=== PATIENT | male | born 1970 | race Caucasian/White ===

== ENCOUNTER 2017-04-27 14:46 | Inpatient (IN) | payer BC, SELFPAY ==
[2017-04-27] VITALS (7 sets, daily range): BP systolic 115–154; BP diastolic 54–82; PULSE 70–107; RESP 16–20; TEMP 36.3–37.2; O2SAT 94–99; BMI 25.2; BMI 25.1; BMI 23.1
--- NOTE | 2017-04-27 14:59 | XR_ITS ---
XR chest 2V HISTORY: Chest pain ITS.REASON: pain in ribs ORDERING PHYSICIAN: Tena Almaraz MD PATIENT AGE: 46 years COMPARISON: 01/31/2017 FINDINGS: The cardiomediastinal silhouette and pulmonary vascularity are within normal limits. Previously noted infiltrate in the left lung base has shown improvement. There is some residual density in the left lower lobe posteriorly which may be due to residual atelectasis or infiltrate.. In addition, there is patchy density right lung base medially consistent with atelectasis or infiltrate. IMPRESSION: 1. Improved lingular pneumonia with some residual atelectasis or infiltrate in the left lung base 2. There is increased density in the right lung base medially and posteriorly consistent with pneumonia
--- NOTE | 2017-04-27 15:19 | HMH.EDGENADL ---
ED Disposition Clinical Impression: RLL pneumonia, IV drug user Disposition: Still a Patient Condition on Discharge: Fair Referrals: Brunilda Romano APRN [Primary Care Provider] - - Critical Care Critical Care Time: No Attestation: On , the high probability of a clinically significant, sudden or life threatening deterioration of the following system(s) required my full and direct attention, intervention and personal management. The time I documented below is in addition to time spent performing reported procedures but includes the following listed in this critical care notation. Medical Decision Making Vital Signs: 04/27/17 14:54 Temperature 99.0 F Temperature Source Oral Pulse Rate [Right Brachial] 107 H Respiratory Rate 20 Blood Pressure [Right Arm] 154/54 Blood Pressure Mean [Right Arm] 87 Blood Pressure Source [Right Arm] Automatic Cuff Blood Pressure Position [Right Arm] Sitting 02 Sat by Pulse Oximetry 94 L Oxygen Delivery Method Room Air - Lab Data Lab Results 04/27/17 15:50: WBC 17.3 H, RBC 3.99 L, Hgb 10.2 L, Hct 32.4 L, MCV 81.3, MCH 25.5 L, MCHC 31.3 L, RDW 14.8, Plt Count 316, MPV 7.8, Neut % (Auto) 89.7 H, Lymph % (Auto) 5.4 L, [place] % (Auto) 4.6, Eos % (Auto) 0.2, Baso % (Auto) 0.1, Neut # (Auto) 15.5 H, Lymph # (Auto) 0.9, [place] # (Auto) 0.8, Eos # (Auto) 0.0, Baso # (Auto) 0.0, Total Counted 100, Neutrophils % (Manual) 86 H, Band Neutrophils % 5.0, Lymphocytes % (Manual) 5 L, Monocytes % (Manual) 4, Platelet Estimate Normal, RBC Morphology Normal 04/27/17 15:50: Sodium 131 L, Potassium 3.6, Chloride 94 L, Carbon Dioxide 28, Anion Gap 12.6, BUN 9, Creatinine 1.11, Estimated Creat Clear 91, Estimated GFR 71, Est GFR ( Amer) 86, Glucose 173 H, Calcium 8.6, Total Bilirubin 0.8, AST 10 L, ALT 12, Alkaline Phosphatase 78, Troponin I < 0.02, Total Protein 8.1, Albumin 3.2 L, Globulin 4.9 H, Albumin/Globulin Ratio 0.7 L, Lipase 78 04/27/17 15:50: Lactic Acid 0.5 Result diagrams: 04/27/17 15:50 04/27/17 15:50 Orders (Tests/Meds): ED MEDICATIONS Generic Name Dose Route Start Last Admin Trade Name Freq PRN Reason Stop Dose Admin Ceftriaxone Sodium 1 gm/ 50 mls @ 100 mls/hr 04/27/17 15:30 04/27/17 16:13 Sodium Chloride IV 05/11/17 15:29 100 mls/hr Q24H GRISELDA Administration Discontinued Medications Generic Name Dose Route Start Last Admin Trade Name Freq PRN Reason Stop Dose Admin Acetaminophen 1,000 mg 04/27/17 15:18 04/27/17 16:13 Tylenol 500mg Tablet PO 04/27/17 15:19 1,000 mg ONCE ONE Administration ORDERS Category Date Time Status Chest XR 2 view (NOT portable) [XR chest 2V] Stat Exams 04/27/17 14:59 Taken Drug Screen,Urine Stat Lab 04/27/17 15:17 Ordered Urinalysis and Microscopic Stat Lab 04/27/17 15:17 Ordered Blood Culture Stat Micro 04/27/17 15:50 Received - Radiology Data #1 Image(s): Chest Image Reviewed: Yes I reviewed the patient's radiology image Preliminary Findings: Abnormal Right lower lobe infiltrate. - ECG Data Tracing #1 Sinus tachycardia 1 12/min left atrial enlargement baseline artifact nonspecific ST and T-wave change. ECG initial impression date: 04/27/17 ECG initial impression time: 15:22 Normal Sinus Rhythm: No - Joaquín Inquiry Pt receiving controlled substance: No Joaquín was queried for this patient: No Medical Decision Making Narrative: Patient ruled out for [place] by negative troponin, he had right lower lobe infiltrates and an elevated white count. She is Brunilda Romano and Joe .called Dr. Abdi to admit General Adult HPI - General Chief complaint: PAIN Stated complaint: pain in ribs Mode of Arrival: Ambulatory Limitations: No Limitations Description of Symptoms (Recalled from ER Triage Doc. by RN): Pt reports pain in R posterior rib area, states pain happens with inspiration. Pt reports had this same feeling last time he had pneumonia - History of Present Illness HPI narrat
--- NOTE | 2017-04-27 15:22 | ED_ITS ---
ED Disposition Clinical Impression: RLL pneumonia, IV drug user Disposition: Still a Patient Condition on Discharge: Fair Referrals: Brunilda Romano APRN [Primary Care Provider] - - Critical Care Critical Care Time: No Attestation: On , the high probability of a clinically significant, sudden or life threatening deterioration of the following system(s) required my full and direct attention, intervention and personal management. The time I documented below is in addition to time spent performing reported procedures but includes the following listed in this critical care notation. Medical Decision Making Vital Signs: 04/27/17 14:54 Temperature 99.0 F Temperature Source Oral Pulse Rate [Right Brachial] 107 H Respiratory Rate 20 Blood Pressure [Right Arm] 154/54 Blood Pressure Mean [Right Arm] 87 Blood Pressure Source [Right Arm] Automatic Cuff Blood Pressure Position [Right Arm] Sitting 02 Sat by Pulse Oximetry 94 L Oxygen Delivery Method Room Air - Lab Data Lab Results 04/27/17 15:50: WBC 17.3 H, RBC 3.99 L, Hgb 10.2 L, Hct 32.4 L, MCV 81.3, MCH 25.5 L, MCHC 31.3 L, RDW 14.8, Plt Count 316, MPV 7.8, Neut % (Auto) 89.7 H, Lymph % (Auto) 5.4 L, [place] % (Auto) 4.6, Eos % (Auto) 0.2, Baso % (Auto) 0.1, Neut # (Auto) 15.5 H, Lymph # (Auto) 0.9, [place] # (Auto) 0.8, Eos # (Auto) 0.0, Baso # (Auto) 0.0, Total Counted 100, Neutrophils % (Manual) 86 H, Band Neutrophils % 5.0, Lymphocytes % (Manual) 5 L, Monocytes % (Manual) 4, Platelet Estimate Normal, RBC Morphology Normal 04/27/17 15:50: Sodium 131 L, Potassium 3.6, Chloride 94 L, Carbon Dioxide 28, Anion Gap 12.6, BUN 9, Creatinine 1.11, Estimated Creat Clear 91, Estimated GFR 71, Est GFR ( Amer) 86, Glucose 173 H, Calcium 8.6, Total Bilirubin 0.8, AST 10 L, ALT 12, Alkaline Phosphatase 78, Troponin I < 0.02, Total Protein 8.1 , Albumin 3.2 L, Globulin 4.9 H, Albumin/Globulin Ratio 0.7 L, Lipase 78 04/27/17 15:50: Lactic Acid 0.5 Result diagrams: 04/27/17 15:50 04/27/17 15:50 Orders (Tests/Meds): ED MEDICATIONS Generic Name Dose Route Start Last Admin Trade Name Freq PRN Reason Stop Dose Admin Ceftriaxone Sodium 1 gm/ 50 mls @ 100 mls/hr 04/27/17 15:30 04/27/17 16:13 Sodium Chloride IV 05/11/17 15:29 100 mls/hr Q24H GRISELDA Administration Discontinued Medications Generic Name Dose Route Start Last Admin Trade Name Freq PRN Reason Stop Dose Admin Acetaminophen 1,000 mg 04/27/17 15:18 04/27/17 16:13 Tylenol 500mg Tablet PO 04/27/17 15:19 1,000 mg ONCE ONE Administration ORDERS Category Date Time Status Chest XR 2 view (NOT portable) [XR chest 2V] Stat Exams 04/27/17 14:59 Taken Drug Screen,Urine Stat Lab 04/27/17 15:17 Ordered Urinalysis and Microscopic Stat Lab 04/27/17 15:17 Ordered Blood Culture Stat Micro 04/27/17 15:50 Received - Radiology Data #1 Image(s): Chest Image Reviewed: Yes I reviewed the patient's radiology image Preliminary Findings: Abnormal Right lower lobe infiltrate. - ECG Data Tracing #1 Sinus tachycardia 1 12/min left atrial enlargement baseline artifact nonspecific ST and T-wave change. ECG initial impression date: 04/27/17 ECG initial impression time: 15:22 Normal Sinus Rhythm: No - Joaquín Inquiry Pt receiving controlle
[2017-04-27 16:10] LABS: Basophils % 0.1 % (0.1-2.0); Eosinophils % 0.2 % (0.1-12.0); Hematocrit 32.4 % (42.0-52.0); Hemoglobin 10.2 g/dL (14.1-18.0); Lymphocytes # 0.9 K/mm3 (0.7-4.5); Lymphocytes % 5.4 K/mm3 (10-50); Mean Corpuscular HGB Conc 31.3 g/dL (31.8-35.4); Mean Corpuscular Hemoglobin 25.5 pg (27.0-31.2); Mean Corpuscular Volume 81.3 fl (80-94); Mean Platelet Volume 7.8 fl (7.4-10.4); Monocytes # 0.8 K/mm3 (0.1-1.0); Monocytes % 4.6 % (1.7-9.3); Neutrophils # 15.5 K/mm3 (1.8-7.8); Neutrophils % 89.7 % (37.0-80.0); Platelet Count 316 K/mm3 (142-424); Red Blood Count 3.99 M/mm3 (4.60-6.20); Red Cell Distribution Width 14.8 % (11.5-17.5); White Blood Count 17.3 K/mm3 (4.8-10.8)
[2017-04-27 16:14] LABS: MANUAL DIFFERENTIAL MANUAL DIFFERENTIAL (MANUAL DIFF)
[2017-04-27 16:26] LABS: Lactic Acid 0.5 mmol/L (0.4-2.0)
[2017-04-27 16:28] LABS: Lymphocytes % 5 % (10-50); Monocytes % 4 % (2-9); Neutrophils % 86 % (42-76); Platelet Estimate Normal; RBC Morphology Normal; Total Cells Counted 100
[2017-04-27 16:30] LABS: Alanine Aminotransferase 12 U/L (12-78); Albumin Level 3.2 gm/dL (3.4-5.0); Albumin/Globulin Ratio 0.7 (1.1-1.8); Alkaline Phosphatase 78 U/L (46-116); Anion Gap 12.6 mEq/L (5-15); Aspartate Amino Transferase 10 U/L (15-37); Bilirubin,Total 0.8 mg/dL (0.2-1.0); Blood Urea Nitrogen 9 mg/dL (7-18); Calcium 8.6 mg/dL (8.5-10.1); Carbon Dioxide 28 mmol/L (21.0-32.0); Chloride 94 mmol/L (98-107); Creatinine Clearance Estimated 91 mL/min (0-300); Creatinine,Serum 1.11 mg/dL (0.70-1.30); Estimated Glomerular Filt Rate 71 ml/min (>60); GFR (African American) 86 ML/MIN (>60); Globulin 4.9 gm/dl (1.3-3.2); Lipase 78 u/L (73-393); Potassium 3.6 mmoL/L (3.5-5.1); Sodium 131 mmol/L (136-145); Total Protein,Serum 8.1 gm/dL (6.4-8.2); Troponin I < 0.02 ng/ml (0.00-0.06)
[2017-04-27 16:36] LABS: Glucose 173 mg/dL (74-106)
[2017-04-27 18:25] LABS: Troponin I < 0.02 ng/ml (0.00-0.06)
--- NOTE | 2017-04-27 18:44 | PC.NURSE ---
Report called to ABBY Zelaya in medsurg department at this time.
[2017-04-28] VITALS (24 sets, daily range): BP systolic 94–126; BP diastolic 51–81; PULSE 64–104; RESP 16–18; TEMP 34.8–36.5; O2SAT 95–100
--- NOTE | 2017-04-28 | PC.NURSE ---
PATIENT'S ORAL TEMPERATURE WILL NOT REGISTER AT THIS TIME. RECTAL TEMPERATURE OF 95.2 NOTED. ROMEL RODAS PUT ON PATIENT AT THIS TIME. OTHER VSS. DR. ERICKSON NOTIFIED WITH NO NEW ORDERS AT THIS TIME. WILL CONTINUE TO MONITOR PER HYPOTHERMIA PROTOCOL.
--- NOTE | 2017-04-28 00:06 | PC.NURSE ---
NURSE NOTIFIED OF PTS LOW TEMP. BRIT PAWS APPLIED PER PROTOCOL
[2017-04-28 00:10] LABS: Troponin I < 0.02 ng/ml (0.00-0.06)
--- NOTE | 2017-04-28 00:19 | PC.NURSE ---
VS REPORTED TO RN. & VS EDWIN PER PROTOCOL
--- NOTE | 2017-04-28 00:38 | PC.NURSE ---
NURSE NOTIFIED . BRIT HEMANT & PATRICK GERBERS IN PLACE PER PROTOCOL. VS TAKEN PER PROTOCOL
--- NOTE | 2017-04-28 00:56 | PC.NURSE ---
BRIT PAWS IN PLACE WITH WARM BALNKET. NURSE NOTIFIED OF PTS TEMP. VS BEING TAKEN PER PROTOCOL
--- NOTE | 2017-04-28 01:32 | PC.NURSE ---
nurse notiified of pts temp. vs taken per protocol. fortunato paws & warm blankets in place & heat adjusted in room per protocol
--- NOTE | 2017-04-28 01:54 | PC.NURSE ---
BRIT PAWS & WARM BLANKETS IN PLACE. VS TAKEN PER PROTOCOL. NURSE NOTIFIED
--- NOTE | 2017-04-28 02:23 | PC.NURSE ---
NURSE NOTIFIED OF PTS TEMP. VS TAKEN PER [facility] PROTOCOL. BRIT PWA & WARM BLANKETS IN PLACE
--- NOTE | 2017-04-28 02:59 | PC.NURSE ---
BRIT PAW IN PLACE & VS TAKEN PER PROTOCOL. NURSE NOTIFIED OF PTS TEMP
--- NOTE | 2017-04-28 03:53 | PC.NURSE ---
fortunato paws in place. vs taken per protocl. nurse notified
--- NOTE | 2017-04-28 03:54 | PC.NURSE ---
BRIT PAW & WARM BLANKETSW IN PLACE. VS TAKEN. RN AWARE
--- NOTE | 2017-04-28 04:17 | PC.NURSE ---
reported vs to lalit. fortunato paw in place
--- NOTE | 2017-04-28 04:49 | PC.NURSE ---
VS BEING TAKEN PER PROTOL & REPORTED TO RN. BRIT PAWS & WARM BLANKETS IN PLACE
--- NOTE | 2017-04-28 05:02 | PC.NURSE ---
PATIENT HAS NOT SLEPT WELL THIS SHIFT. PATIENT'S TEMP AT 0000 WAS 95.2 RECTALLY. MD WAS NOTIFIED AND PATIENT PLACED ON BEAR HUGGER. WARM BLANKETS WERE APPLIED AND WARM FLUIDS STARTED. PATIENT IS CURRENTLY STILL ON THE BEAR HUGGER WITH RECTAL TEMPS RANGING FROM 94.7-95.1. PATIENT IS SOMEWHAT NON-COMPLIANT WITH KEEPING THE BEAR HUGGER AND BLANKETS ON, STATING THAT HE IS TOO HOT . PATIENT ENCOURAGED AND EDUCATED ON THE IMPORTANCE OF KEEPING THE BEAR HUGGER IN PLACE. HE HAS C/O PAIN TO LOWER BACK X1 AND RECEIVED PRN TYLENOL. NO OTHER PROBLEMS NOTED AT THIS TIME. PATIENT IS CURRENTLY IN BED WATCHING TV. REMAINING VSS. WILL CONTINUE TO MONITOR. SAFETY MEASURES IN PLACE, CALL LIGHT IN REACH.
--- NOTE | 2017-04-28 06:07 | PC.NURSE ---
PT HAS NOT VOIDED THIS SHIFT. NURSE NOTIFIED
--- NOTE | 2017-04-28 06:09 | PC.NURSE ---
NURSE NOTIFIED OF VS. PT IS ON BRIT PAW & HAS WARM BLANKETS
--- NOTE | 2017-04-28 07:25 | P.CONPHA_ITS ---
[facility] Pharmacy VTE Monitoring - Patient Demographics Admission date: 04/27/17 Report Date: 04/28/17 Time: 07:25 Allergies/Adverse Reactions: Patient Allergies No Known Allergies Allergy (Unverified 02/11/17 14:21) Height: 1.75 m Weight: 70.931 kg Patient Problems: Current Active Problems RLL pneumonia (Acute) IV drug user (Acute) - VTE Risk Labs: VTE Related Lab Results Hgb 10.2 g/dL (14.1-18.0) L 04/27/17 15:50 Hct 32.4 % (42.0-52.0) L 04/27/17 15:50 Plt Count 316 K/mm3 (142-424) 04/27/17 15:50 BUN 9 mg/dL (7-18) 04/27/17 15:50 Creatinine 1.11 mg/dL (0.70-1.30) 04/27/17 15:50 Estimated Creat Clear 91 mL/min (0-300) 04/27/17 15:50 VTE Score: 1 VTE Risk Level: Very Low Risk - Prophylaxis VTE Prophylaxis Ordered?: Yes Types of VTE Prophylaxis: TEDS Knee High Location of Applied Device: Bilateral Lower Extremeties - VTE Diagnosis Confirmed Treatment or plan recommended: Continue Current Treatment
--- NOTE | 2017-04-28 07:27 | PC.NURSE ---
REPORT GIVEN TO Zac MAZARIEGOS W/C
[2017-04-28 07:28] LABS: Basophils % 0.1 % (0.1-2.0); Eosinophils # 0.2 K/mm3 (0.0-0.4); Lymphocytes # 0.8 K/mm3 (0.7-4.5); Neutrophils # 11.4 K/mm3 (1.8-7.8); Red Cell Distribution Width 14.9 % (11.5-17.5)
--- NOTE | 2017-04-28 07:30 | PC.NURSE ---
nurse notified of pts temp. fortunato paw in place per protocol
[2017-04-28 07:32] LABS: Anion Gap 13.1 mEq/L (5-15); Blood Urea Nitrogen 11 mg/dL (7-18); Carbon Dioxide 27 mmol/L (21.0-32.0); Chloride 98 mmol/L (98-107); Creatinine Clearance Estimated 96 mL/min (0-300); Creatinine,Serum 0.96 mg/dL (0.70-1.30); Estimated Glomerular Filt Rate 84 ml/min (>60); GFR (African American) 102 ML/MIN (>60); Magnesium 2.2 mg/dL (1.4-2.2); Potassium 4.1 mmoL/L (3.5-5.1); Sodium 134 mmol/L (136-145)
[2017-04-28 07:34] LABS: Eosinophils % 1.2 % (0.1-12.0); Hematocrit 38.7 % (42.0-52.0); Lymphocytes % 6.1 K/mm3 (10-50); Mean Corpuscular HGB Conc 31.4 g/dL (31.8-35.4); Mean Corpuscular Hemoglobin 25.7 pg (27.0-31.2); Mean Corpuscular Volume 81.9 fl (80-94); Mean Platelet Volume 7.8 fl (7.4-10.4); Monocytes # 0.4 K/mm3 (0.1-1.0); Monocytes % 3.4 % (1.7-9.3); Neutrophils % 89.2 % (37.0-80.0); Platelet Count 286 K/mm3 (142-424); Red Blood Count 4.72 M/mm3 (4.60-6.20); White Blood Count 12.7 K/mm3 (4.8-10.8)
[2017-04-28 07:37] LABS: Glucose 119 mg/dL (74-106)
[2017-04-28 07:41] LABS: Hemoglobin 12.1 g/dL (14.1-18.0); MANUAL DIFFERENTIAL MANUAL DIFFERENTIAL (MANUAL DIFF)
--- NOTE | 2017-04-28 08:15 | CT_ITS ---
CT chest wo/w con HISTORY: Pneumonia, abnormal chest x-ray, residual infiltrate ITS.REASON: pneumonia ORDERING PHYSICIAN: Brennan Abdi MD PATIENT AGE: 46 years TECHNIQUE: Axial images obtained. Sagittal and coronal reformatted images are also generated and reviewed. CONTRAST: 75ml Isovue 370 I.V. COMPARISON: Radiograph of 04/27/2017 FINDINGS: There is mild axillary adenopathy with nodes on the right measuring up to 2.7 x 1.7 cm and nodes on the left measuring up to 3 x 1.6 cm. No mediastinal or hilar adenopathy is evident. There are few small nodes but they're not enlarged within the mediastinum and dale. Normal heart size. No obvious pericardial effusion. There is a small right pleural effusion and a small amount of fluid in the right major fissure. There is consolidation in the right lower lobe with air bronchograms consistent with pneumonia. There are mild atelectatic changes in the left lung base and lingula. There is a calcified granuloma in the right upper lobe Upper abdominal images show borderline splenomegaly. No acute bony anomalies. IMPRESSION: 1. Right lower lobe consolidation consistent with pneumonia and/or volume loss with effusion 2. Atelectatic changes in the lingula and left lower lobe. 3. Bilateral axillary adenopathy
--- NOTE | 2017-04-28 09:13 | HMH.HP ---
*Admission Date: 04/27/17 <Veena Molina 04/28/17 09:37> *Chief complaint: right posterior rib pain <04/28/17 09:37> *History of present illness: Mr. Lam is a 46yo WM with a history of IVDA who is a current patient of Brunilda Romano APRN. He came to [facility] ED yesterday for worsening right posterior rib pain with inspiration or cough accompanied by fever, chills, and sweats. Upon evaluation, he was febrile with WBC 17.3. His troponin was negative. His CXR showed a RLL infiltrate. His case was discussed with Dr. Abdi and he was admitted for antibiotics and IVF. This morning he is still not feeling much better, although he reports resting well overnight. His WBC is improved and he is afebrile. He continues with right posterior rib pain. He denies any cough or SOB. He has little appetite, denies N/V/D. He up to the bathroom without difficulty and voiding normally. <Jesse,Veena - 04/28/17 09:37> [facility] History I have reviewed the patient's past medical history: Yes <04/28/17 09:37> Medical History: Denies:: Asthma, Atherosclerotic Heart Disease, Atrial Fibrillation, Cancer, Congestive Heart Failure, Chronic Obstructive Pulmonary Disease (COPD), Congenital Heart Disease, Cerebrovascular Accident, Diabetes Mellitus Type 1, Diabetes Mellitus Type 2, Gastroesophageal Reflux Disease(GERD), Gastrointestinal Bleed, Hepatitis, Hyperlipidemia, Hypertension, Internal Pacemaker, Lung Disease, MRSA, Myocardial Infarction, Renal Disease, Seizures, Transient Ischemic Attacks (TIA) <Jesse,Veena - 04/28/17 09:37> Other Medical History: Denies: Anemia, Hypothyroidism, Liver Disease, Thyroid Disease, Unexplained Bleeding <Veena - 04/28/17 09:37> Other Surgeries: Yes: No Previous Surgery. No: Pacemaker <04/28/17 09:37> - *Social History Alcohol Intake: never <Veena - 04/28/17 09:37> Substance Use Type: IV drugs <Evena - 04/28/17 09:37> Last Used Substance: days (ago) <Tom Molinaa - 03/05/18 09:37> Occupational Status: employed <Veena Molina 04/28/17 09:37> - Psychiatric History Expresses thoughts of harming self/others: None <Veena Molina 04/28/17 09:37> Suicide Plan Description: No Plan <Veena Molina 04/28/17 09:37> *Family Hx:: Diabetes, Hypertension, no Cancer <Veena Molina 04/28/17 09:37> Review of Systems - Review of Systems Review of systems:: pertinent systems reviewed and negative unless documented below <Veena Molina 04/28/17 09:37> Meds Home Medications Medication Instructions Recorded Confirmed Type No Known Home Medications [No 04/27/17 04/27/17 History Known Home Medications] <Brennan Abdi - 04/28/17 17:26> Allergies Allergy/AdvReac Type Severity Reaction Status Date / Time No Known Allergies Allergy Unverified 02/11/17 14:21 <Brennan Abdi - 04/28/17 17:26> Exam Vital signs and Labs for Last 24 Hours: Temp Pulse Resp BP Pulse Ox 97.7 F 82 16 94/68 98 04/28/17 16:00 04/28/17 16:00 04/28/17 16:00 04/28/17 16:00 04/28/17 16:00 Laboratory Results - last 24 hr 04/27/17 23:41: Troponin I < 0.02 04/28/17 07:18: WBC 12.7 H D, RBC 4.72, Hgb 12.1 L D, Hct 38.7 L, MCV 81.9, MCH 25.7 L, MCHC 31.4 L, RDW 14.9, Plt Count 286, MPV 7.8, Neut % (Auto) 89.2 H, Lymph % (Auto) 6.1 L, [place] % (Auto) 3.4, Eos % (Auto) 1.2, Baso % (Auto) 0.1, Neut # (Auto) 11.4 H, Lymph # (Auto) 0.8, [place] # (Auto) 0.4, Eos # (Auto) 0.2, Baso # (Auto) 0.0, Total Counted 100, Neutrophils % (Manual) 86 H, Lymphocytes % (Manual) 10, Monocytes % (Manual) 4, Platelet Estimate Normal, RBC Morphology Normal 04/28/17 07:18: Sodium 134 L, Potassium 4.1, Chloride 98, Carbon Dioxide 27, Anion Gap 13.1, BUN 11, Creatinine 0.96, Estimated Creat Clear 96, Estimated GFR 84, Est GFR ( Amer) 102, Glucose 119 H D, Magnesium 2.2 <rBennan Abdi - 04/28/17 17:26> Temp Pulse Resp BP Pulse Ox 96.8 F L 104 H 18 112/65 95
--- NOTE | 2017-04-28 09:22 | P.HP_ITS ---
*Admission Date: 04/27/17 <Veena Molina 04/28/17 09:37> *Chief complaint: right posterior rib pain <04/28/17 09:37> *History of present illness: Mr. Lam is a 46yo WM with a history of IVDA who is a current patient of Brunilda Romano APRN. He came to [facility] ED yesterday for worsening right posterior rib pain with inspiration or cough accompanied by fever, chills, and sweats. Upon evaluation, he was febrile with WBC 17.3. His troponin was negative. His CXR showed a RLL infiltrate. His case was discussed with Dr. Abdi and he was admitted for antibiotics and IVF. This morning he is still not feeling much better, although he reports resting well overnight. His WBC is improved and he is afebrile. He continues with right posterior rib pain. He denies any cough or SOB. He has little appetite, denies N /V/D. He up to the bathroom without difficulty and voiding normally. <Jesse,Veena - 04/28/17 09:37> [facility] History I have reviewed the patient's past medical history: Yes < 09:37> Medical History: Denies:: Asthma, Atherosclerotic Heart Disease, Atrial Fibrillation, Cancer, Congestive Heart Failure, Chronic Obstructive Pulmonary Disease (COPD), Congenital Heart Disease, Cerebrovascular Accident, Diabetes Mellitus Type 1, Diabetes Mellitus Type 2, Gastroesophageal Reflux Disease(GERD), Gastrointestinal Bleed, Hepatitis, Hyperlipidemia, Hypertension, Internal Pacemaker, Lung Disease, MRSA, Myocardial Infarction, Renal Disease, Seizures, Transient Ischemic Attacks (TIA) <Jesse,Veena - 04/28/17 09:37> Other Medical History: Denies: Anemia, Hypothyroidism, Liver Disease, Thyroid Disease, Unexplained Bleeding <Veena - 04/28/17 09:37> Other Surgeries: Yes: No Previous Surgery. No: Pacemaker < 09:37> - *Social History Alcohol Intake: never <Veena - 04/28/17 09:37> Substance Use Type: IV drugs <Veena - 04/28/17 09:37> Last Used Substance: days (ago) <Tom Molinaa - 03/05/18 09:37> Occupational Status: employed <Veena Molina 04/28/17 09:37> - Psychiatric History Expresses thoughts of harming self/others: None <Veena Molina 04/28/17 09:37> Suicide Plan Description: No Plan <Veena Molina 04/28/17 09:37> *Family Hx:: Diabetes, Hypertension, no Cancer <Veena Molina 04/28/17 09:37> Review of Systems - Review of Systems Review of systems:: pertinent systems reviewed and negative unless documented below <Veena Molina 04/28/17 09:37> Meds Home Medications Medication Instructions Recorded Confirmed Type No Known Home Medications [No 04/27/17 04/27/17 History Known Home Medications] <Brennan Abdi - 04/28/17 17:26> Allergies Allergy/AdvReac Type Severity Reaction Status Date / Time No Known Allergies Allergy Unverified 02/11/17 14:21 <Brennan Abdi - 04/28/17 17:26> Exam Vital signs and Labs for Last 24 Hours: Temp Pulse Resp BP Pulse Ox 97.7 F 82 16 94/68 98 04/28/17 16:00 04/28/17 16:00 04/28/17 16:00 04/28/17 16:00 04/28/17 16:00 Laboratory Results - last 24 hr 04/27/17 23:41: Troponin I < 0.02 04/28/17 07:18: WBC 12.7 H D, RBC 4.72, Hgb 12.1 L D, Hct 38.7 L, MCV 81.9, MCH 25.7 L, MCHC 31.4 L, RDW 14.9, Plt Count 286, MPV 7.8, Neut % (Auto) 89.2 H, Lymph % (Auto) 6.1 L, [place] % (Auto) 3.4, Eos % (Auto) 1.2, Baso % (Auto) 0.1, Neut # (Auto) 11.4 H, Lymph # (Auto) 0.8, [place] # (Auto) 0.4, Eos # (Auto) 0.2, Baso # (Auto) 0.0, Total Counted 100, Neutrophils % (Manual) 86 H, Lymphocytes % (Manual) 10, Monocyte
[2017-04-28 10:30] LABS: Lymphocytes % 10 % (10-50); Monocytes % 4 % (2-9); Neutrophils % 86 % (42-76); Total Cells Counted 100
[2017-04-28 10:31] LABS: RBC Morphology Normal
[2017-04-28 10:32] LABS: Platelet Estimate Normal
--- NOTE | 2017-04-28 19:02 | PC.NURSE ---
lATE ENTRY NOTE: 1130 TODAY PT VOICED HE NO LONGER WISHED TO KEEP THE BEAR HUGGER ON OR CONTINUE WITH RECTAL TEMPERATURES. DR. ERICKSON MADE AWARE AND INSTRUCTED LONG ALL OTHER VITALS CONTINUED TO BE WDL TO CONTINUE WITH TAKING ONLY ORAL/AXILLARY TEMPS. WILL UPDATE WITH ANY FURTHER ISSUES/CHANGES.
[2017-04-29 04:00] VITALS: BP 120/61; PULSE 96; RESP 18; TEMP 37.1; O2SAT 95
[2017-04-29 06:11] VITALS: PULSE 81; PULSE 86
--- NOTE | 2017-04-29 06:52 | PC.NURSE ---
PT SLEPT WELL THIS SHIFT. NO ACUTE CHANGES NOTED. PT C/O PAIN, REQUESTING TYLENOL X2, CLOTH SPONGER PER APR. TEMP HAS REMAINED WITHIN NORMAL LIMITS THIS SHIFT. VSS. NO DISTRESS NOTED AT THIS TIME. WILL CONT. TO MONITOR.
--- NOTE | 2017-04-29 07:21 | PC.NURSE ---
REPORT GIVEN TO Amrik DODSON RN
[2017-04-29 07:40] VITALS: BP 114/64; PULSE 103; RESP 18; TEMP 37.1; O2SAT 96
[2017-04-29 08:28] LABS: Eosinophils % 0.4 % (0.1-12.0); Hematocrit 30.7 % (42.0-52.0); Hemoglobin 9.4 g/dL (14.1-18.0); Lymphocytes # 0.6 K/mm3 (0.7-4.5); Lymphocytes % 4.8 K/mm3 (10-50); Mean Corpuscular HGB Conc 30.7 g/dL (31.8-35.4); Mean Corpuscular Hemoglobin 25.2 pg (27.0-31.2); Mean Corpuscular Volume 81.9 fl (80-94); Monocytes # 0.4 K/mm3 (0.1-1.0); Monocytes % 3.1 % (1.7-9.3); Neutrophils # 10.8 K/mm3 (1.8-7.8); Neutrophils % 91.7 % (37.0-80.0); Platelet Count 290 K/mm3 (142-424); Red Blood Count 3.75 M/mm3 (4.60-6.20); Red Cell Distribution Width 15.1 % (11.5-17.5); White Blood Count 11.8 K/mm3 (4.8-10.8)
[2017-04-29 08:30] LABS: MANUAL DIFFERENTIAL MANUAL DIFFERENTIAL (MANUAL DIFF)
[2017-04-29 09:23] VITALS: PULSE 104; PULSE 106
--- NOTE | 2017-04-29 09:30 | HMH.ACPN2 ---
<Veena Molina - Last Filed: 04/29/17 09:30> Internal Medicine - PN: Subj *Date: 04/29/17 *Time: 09:30 Interval history: Mr. Lam reports feeling somewhat better this morning. He rested well overnight. His right posterior rib pain has improved. He denies any cough or SOB. He is voiding normally and up to the bathroom without difficulty. He continues with decreased appetite, denies any nausea or vomiting. Exam Vital signs and Labs for Last 24 Hours: Temp Pulse Resp BP Pulse Ox 98.8 F 106 H 18 114/64 96 04/29/17 07:40 04/29/17 09:23 04/29/17 07:40 04/29/17 07:40 04/29/17 07:40 Laboratory Results - last 24 hr 04/28/17 07:18: Total Counted 100, Neutrophils % (Manual) 86 H, Lymphocytes % (Manual) 10, Monocytes % (Manual) 4, Platelet Estimate Normal, RBC Morphology Normal 04/29/17 08:15: WBC 11.8 H, RBC 3.75 L, Hgb 9.4 L, Hct 30.7 L, MCV 81.9, MCH 25.2 L, MCHC 30.7 L, RDW 15.1, Plt Count 290, MPV 8.0, Neut % (Auto) 91.7 H, Lymph % (Auto) 4.8 L, [place] % (Auto) 3.1, Eos % (Auto) 0.4, Baso % (Auto) 0.0 L, Neut # (Auto) 10.8 H, Lymph # (Auto) 0.6 L, [place] # (Auto) 0.4, Eos # (Auto) 0.0, Baso # (Auto) 0.0 I & O for Last 24 hours: Intake & Output 04/26/17 04/27/17 04/28/17 04/29/17 11:59 11:59 11:59 11:59 Intake Total 530 / 530 2962 / 2962 Output Total 0 / 0 Balance 530 / 530 2962 / 2962 Weight 156 lb 6 oz Microbiology Reports for the Last 24 Hours: Blood cultures: Preliminary report: no growth Radiology Reports for the Last 24 Hours: 04/28/17 CT chest: Impression: 1. Right lower lobe consolidation consistent with pneumonia and/or volume loss with effusion. 2. Atelectatic changes in the lingula and left lower lobe. 3. Bilateral axillary adenopathy. - Constitutional no acute distress Comments: appears pale today - *Routine Respiratory Exam Comments: good air entry bilaterally with few fine rales right base - *Routine Cardiovascular Exam Present: RRR - *Routine Abdominal Exam Present: soft, normoactive bowel sounds. Absent: tenderness, distended, guarding, rigid, organomegaly, mass - *Routine Extremities Exam Present: full ROM, pulses intact. Absent: edema, calf tenderness - *Routine Skin Exam Present: dry, warm - *Routine Neurological Exam Present: alert, oriented X3, normal speech Assessment and Plan (1) RLL pneumonia Current visit: Yes Status: Acute Category: Medical Code(s): J18.1 - Lobar pneumonia, unspecified organism (2) IV drug user Current visit: Yes Status: Acute Category: Social Hx Code(s): F19.90 - Other psychoactive substance use, unspecified, uncomplicated - Assessment and plan all Dx Assessment and Plan for all problems:: WBC has further improved. H/H has dropped. Further per Dr. Abdi. <Brennan Abdi - Last Filed: 04/29/17 12:33> Internal Medicine - PN: Subj *Date: 04/29/17 *Time: 12:30 Exam Vital signs and Labs for Last 24 Hours: Temp Pulse Resp BP Pulse Ox 98.6 F 100 H 18 120/75 94 L 04/29/17 11:32 04/29/17 11:32 04/29/17 11:32 04/29/17 11:32 04/29/17 11:32 Laboratory Results - last 24 hr 04/29/17 08:15: WBC 11.8 H, RBC 3.75 L, Hgb 9.4 L, Hct 30.7 L, MCV 81.9, MCH 25.2 L, MCHC 30.7 L, RDW 15.1, Plt Count 290, MPV 8.0, Neut % (Auto) 91.7 H, Lymph % (Auto) 4.8 L, [place] % (Auto) 3.1, Eos % (Auto) 0.4, Baso % (Auto) 0.0 L, Neut # (Auto) 10.8 H, Lymph # (Auto) 0.6 L, [place] # (Auto) 0.4, Eos # (Auto) 0.0, Baso # (Auto) 0.0 I & O for Last 24 hours: Intake & Output 04/27/17 04/28/17 04/29/17 04/30/17 11:59 11:59 11:59 11:59 Intake Total 530 / 530 2962 / 2962 Output Total 0 / 0 Balance 530 / 530 2962 / 2962 Weight 156 lb 6 oz Assessment and Plan (1) RLL pneumonia Current visit: Yes Status: Acute Category: Medical Code(s): J18.1 - Lobar pneumonia, unspecified organism (2) IV drug user Current visit: Yes Status: Acute Category: Social Hx Code(s): F19.9
--- NOTE | 2017-04-29 09:33 | P.PN_ITS ---
<Veena Molina - Last Filed: 04/29/17 09:30> Internal Medicine - PN: Subj *Date: 04/29/17 *Time: 09:30 Interval history: Mr. Lam reports feeling somewhat better this morning. He rested well overnight. His right posterior rib pain has improved. He denies any cough or SOB. He is voiding normally and up to the bathroom without difficulty. He continues with decreased appetite, denies any nausea or vomiting. Exam Vital signs and Labs for Last 24 Hours: Temp Pulse Resp BP Pulse Ox 98.8 F 106 H 18 114/64 96 04/29/17 07:40 04/29/17 09:23 04/29/17 07:40 04/29/17 07:40 04/29/17 07:40 Laboratory Results - last 24 hr 04/28/17 07:18: Total Counted 100, Neutrophils % (Manual) 86 H, Lymphocytes % ( Manual) 10, Monocytes % (Manual) 4, Platelet Estimate Normal, RBC Morphology Normal 04/29/17 08:15: WBC 11.8 H, RBC 3.75 L, Hgb 9.4 L, Hct 30.7 L, MCV 81.9, MCH 25.2 L, MCHC 30.7 L, RDW 15.1, Plt Count 290, MPV 8.0, Neut % (Auto) 91.7 H, Lymph % (Auto) 4.8 L, [place] % (Auto) 3.1, Eos % (Auto) 0.4, Baso % (Auto) 0.0 L, Neut # (Auto) 10.8 H, Lymph # (Auto) 0.6 L, [place] # (Auto) 0.4, Eos # (Auto) 0.0 , Baso # (Auto) 0.0 I & O for Last 24 hours: Intake & Output 04/26/17 04/27/17 04/28/17 04/29/17 11:59 11:59 11:59 11:59 Intake Total 530 / 530 2962 / 2962 Output Total 0 / 0 Balance 530 / 530 2962 / 2962 Weight 156 lb 6 oz Microbiology Reports for the Last 24 Hours: Blood cultures: Preliminary report: no growth Radiology Reports for the Last 24 Hours: 04/28/17 CT chest: Impression: 1. Right lower lobe consolidation consistent with pneumonia and/or volume loss with effusion. 2. Atelectatic changes in the lingula and left lower lobe. 3. Bilateral axillary adenopathy. - Constitutional no acute distress Comments: appears pale today - *Routine Respiratory Exam Comments: good air entry bilaterally with few fine rales right base - *Routine Cardiovascular Exam Present: RRR - *Routine Abdominal Exam Present: soft, normoactive bowel sounds. Absent: tenderness, distended, guarding, rigid, organomegaly, mass - *Routine Extremities Exam Present: full ROM, pulses intact. Absent: edema, calf tenderness - *Routine Skin Exam Present: dry, warm - *Routine Neurological Exam Present: alert, oriented X3, normal speech Assessment and Plan (1) RLL pneumonia Current visit: Yes Status: Acute Category: Medical Code(s): J18.1 - Lobar pneumonia, unspecified organism (2) IV drug user Current visit: Yes Status: Acute Category: Social Hx Code(s): F19.90 - Other psychoactive substance use, unspecified, uncomplicated - Assessment and plan all Dx Assessment and Plan for all problems:: WBC has further improved. H/H has dropped. Further per Dr. Abdi. <Brennan Abdi - Last Filed: 04/29/17 12:33> Internal Medicine - PN: Subj *Date: 04/29/17 *Time: 12:30 Exam Vital signs and Labs for Last 24 Hours: Temp Pulse Resp BP Pulse Ox 98.6 F 100 H 18 120/75 94 L 04/29/17 11:32 04/29/17 11:32 04/29/17 11:32 04/29/17 11:32 04/29/17 11:32 Laboratory Results - last 24 hr 04/29/17 08:15: WBC 11.8 H, RBC 3.75 L, Hgb 9.4 L, Hct 30.7 L, MCV 81.9, MCH 25.2 L, MCHC 30.7 L, RDW 15.1, Plt Count 290, MPV 8.0, Neut % (Auto) 91.7 H, Lymph % (Auto) 4.8 L, [place] % (Auto) 3.1, Eos % (Auto) 0.4, Baso % (Auto) 0.0 L, Neut #
[2017-04-29 11:32] VITALS: BP 120/75; PULSE 100; RESP 18; TEMP 37; O2SAT 94
--- NOTE | 2017-04-29 12:33 | HMH.DCSUM ---
General - General Admission date: 04/27/17 <Brennan Abdi - 04/29/17 12:38> Discharge date: 04/29/17 <Diya Awad - 05/03/17 11:53> HPI HPI: Mr. Lam is a 46yo WM with a history of IVDA who is a current patient of Brunilda Romano APRN. He came to [facility] ED for worsening right posterior rib pain with inspiration or cough accompanied by fever, chills, and sweats. Upon evaluation, he was febrile with WBC 17.3. His troponin was negative. His CXR showed a RLL infiltrate. His case was discussed with Dr. Abdi and he was admitted for antibiotics and IVF. <Brennan Abdi - 05/22/17 21:40> Hospital Course Hospital Course: Mr. Lam's symptoms improved. His blood cultures were negative. He had a chest CT showing RLL pneumonia and bilateral axillary adenopathy. His WBC improved and he was stable to be discharged home on oral abx and f/u with his PCP, Brunilda Romano in 1 week. He will need a repeat CBC at that time as his H&H decreased with hydration. <Diya Awad - 05/03/17 11:53> Objective Vital signs: Temp Pulse Resp BP Pulse Ox 98.6 F 79 18 120/75 94 L 04/29/17 11:32 04/29/17 13:13 04/29/17 11:32 04/29/17 11:32 04/29/17 11:32 <Diya Awad - 05/03/17 11:47> Temp Pulse Resp BP Pulse Ox 98.6 F 100 H 18 120/75 94 L 04/29/17 11:32 04/29/17 11:32 04/29/17 11:32 04/29/17 11:32 04/29/17 11:32 <[place]in[place]Brennan Corona - 04/29/17 12:38> Narrative: - Constitutional no acute distress - *Routine HEENT Exam Head: Present: normocephalic Eye: Present: PERRL, normal accommodation ENT: Present: mucous membranes moist - *Routine Neck Exam Present: supple, full ROM. Absent: lymphadenopathy, tenderness - *Routine Respiratory Exam Comments: CTAB A&P, diminished bibasilarly - *Routine Cardiovascular Exam Present: RRR - *Routine Abdominal Exam Present: soft, normoactive bowel sounds. Absent: tenderness, distended, guarding, rigid, mass - *Routine Extremities Exam Present: full ROM, pulses intact. Absent: edema, calf tenderness - *Routine Skin Exam Comments: left forearm with chronic changes r/t IVDA - *Routine Neurological Exam Present: alert, oriented X3, normal speech <DelmiDiya - 05/03/17 11:53> Results Labs on day of discharge: Labs from last 24 hours 04/29/17 08:15 WBC 11.8 H RBC 3.75 L Hgb 9.4 L Hct 30.7 L MCV 81.9 MCH 25.2 L MCHC 30.7 L RDW 15.1 Plt Count 290 MPV 8.0 Neut % (Auto) 91.7 H Lymph % (Auto) 4.8 L [place] % (Auto) 3.1 Eos % (Auto) 0.4 Baso % (Auto) 0.0 L Neut # (Auto) 10.8 H Lymph # (Auto) 0.6 L [place] # (Auto) 0.4 Eos # (Auto) 0.0 Baso # (Auto) 0.0 <Brennan Abdi - 04/29/17 12:38> DS: Diagnosis - Discharge Diagnosis (1) RLL pneumonia Status: Acute (2) IV drug user Status: Acute (3) Anemia Status: Acute <Brennan Abdi - 05/22/17 21:40> Discharge Plan - Patient Discharge Instructions ACTIVITY: Continue current activity <Brennan Abdi - 04/29/17 12:38> DIET: continue same diet <Brennan Abdi - 04/29/17 12:38> Patient Instructions: DI for Pneumonia -- Adult <Brennan Abdi - 04/29/17 12:38> - Follow up Plan Follow up with: Brunilda Romano APRN [Primary Care Provider] - <Brennan Abdi - 04/29/17 12:38> Disposition: Home, Self-Care <Brennan Abdi - 04/29/17 12:38> Prescriptions/Medication Reconciliation: New cefUROXime axetil [Cefuroxime 500mg Tab] 500 mg PO BID #14 tab <Brennan Abdi - 04/29/17 13:22> - Additional Information Additional Information: Concur with discharge plans as outlined above. He will need repeat xrays on outpt basis to assess clearing of his pneumonia and f/u on axillary adenopathy <Brennan Abdi - 05/22/17 21:40>
--- NOTE | 2017-04-29 12:37 | P.DS_ITS ---
General - General Admission date: 04/27/17 <Brennan Abdi - 04/29/17 12:38> Discharge date: 04/29/17 <Diya Awad - 05/03/17 11:53> HPI HPI: Mr. Lam is a 46yo WM with a history of IVDA who is a current patient of Brunilda Romano APRN. He came to [facility] ED for worsening right posterior rib pain with inspiration or cough accompanied by fever, chills, and sweats. Upon evaluation, he was febrile with WBC 17.3. His troponin was negative. His CXR showed a RLL infiltrate. His case was discussed with Dr. Abdi and he was admitted for antibiotics and IVF. <Brennan Abdi - 05/22/17 21:40> Hospital Course Hospital Course: Mr. Lam's symptoms improved. His blood cultures were negative. He had a chest CT showing RLL pneumonia and bilateral axillary adenopathy. His WBC improved and he was stable to be discharged home on oral abx and f/u with his PCP, Brunilda Romano in 1 week. He will need a repeat CBC at that time as his H&H decreased with hydration. <Diya Awad - 05/03/17 11:53> Objective Vital signs: Temp Pulse Resp BP Pulse Ox 98.6 F 79 18 120/75 94 L 04/29/17 11:32 04/29/17 13:13 04/29/17 11:32 04/29/17 11:32 04/29/17 11:32 <Diya Awad - 05/03/17 11:47> Temp Pulse Resp BP Pulse Ox 98.6 F 100 H 18 120/75 94 L 04/29/17 11:32 04/29/17 11:32 04/29/17 11:32 04/29/17 11:32 04/29/17 11:32 <[place]rennan Corona - 04/29/17 12:38> Narrative: - Constitutional no acute distress - *Routine HEENT Exam Head: Present: normocephalic Eye: Present: PERRL, normal accommodation ENT: Present: mucous membranes moist - *Routine Neck Exam Present: supple, full ROM. Absent: lymphadenopathy, tenderness - *Routine Respiratory Exam Comments: CTAB A&P, diminished bibasilarly - *Routine Cardiovascular Exam Present: RRR - *Routine Abdominal Exam Present: soft, normoactive bowel sounds. Absent: tenderness, distended, guarding, rigid, mass - *Routine Extremities Exam Present: full ROM, pulses intact. Absent: edema, calf tenderness - *Routine Skin Exam Comments: left forearm with chronic changes r/t IVDA - *Routine Neurological Exam Present: alert, oriented X3, normal speech <Diya Awad - 05/03/17 11:53> Results Labs on day of discharge: Labs from last 24 hours 04/29/17 08:15 WBC 11.8 H RBC 3.75 L Hgb 9.4 L Hct 30.7 L MCV 81.9 MCH 25.2 L MCHC 30.7 L RDW 15.1 Plt Count 290 MPV 8.0 Neut % (Auto) 91.7 H Lymph % (Auto) 4.8 L [place] % (Auto) 3.1 Eos % (Auto) 0.4 Baso % (Auto) 0.0 L Neut # (Auto) 10.8 H Lymph # (Auto) 0.6 L [place] # (Auto) 0.4 Eos # (Auto) 0.0 Baso # (Auto) 0.0 <Brennan Abdi - 04/29/17 12:38> DS: Diagnosis - Discharge Diagnosis (1) RLL pneumonia Status: Acute (2) IV drug user Status: Acute (3) Anemia Status: Acute <Brennan Abdi - 05/22/17 21:40> Discharge Plan - Patient Discharge Instructions ACTIVITY: Continue current activity <Brennan Abdi - 04/29/17 12:38> DIET: continue same diet <Brennan Abdi - 04/29/17 12:38> Patient Instructions: D
[2017-04-29 13:13] VITALS: PULSE 74; PULSE 79
[2017-04-29 15:42] LABS: Lymphocytes % 9 % (10-50); Monocytes % 2 % (2-9); Neutrophils % 89 % (42-76); Platelet Estimate Normal; RBC Morphology Normal; Total Cells Counted 100
== END 2017-04-29 14:20 | disposition home or self-care (01) | DRG 195 ==
LOC: ER 16:39 → 2ND 16:56
PROVIDERS: Admitting Provider Family Medicine; Emergency Provider Emergency Medicine; Family Provider Nurse Practitioner Family; PCP Nurse Practitioner Family; Visit Provider Family Medicine
DX: J18.9 Pneumonia, unspecified organism (principal); F19.90 Other psychoactive substance use, unspecified, uncomplicated
CPT/HCPCS: 36415; 71046; 71270; 80048; 80053; 83605; 83690; 83735; 84484; 85007; 85025; 87040; 93005; 94640; 96374; 99282; J0456; Q9967

== ENCOUNTER 2020-03-16 06:31 | Observation (INO) | payer BC, SELFPAY ==
[2020-03-16] VITALS (13 sets, daily range): BP systolic 97–149; BP diastolic 60–99; PULSE 88–117; RESP 17–20; TEMP 36.5–36.9; O2SAT 94–98; BMI 26.6; BMI 26.5
--- NOTE | 2020-03-16 06:44 | XR_ITS ---
PROCEDURE: XR CHEST 2V CLINICAL HISTORY: extremity numbness Pain COMPARISON: CR CXR CHEST(2 VIEWS-NOT PORTABLE) from 01/31/2017 CR CXR2V XR chest 2V from 04/27/[address] chest wo/w con from 04/28/2017 FINDINGS: The cardiomediastinal silhouette and pulmonary vascularity are within normal limits. Ground-glass infiltrate is present in the right upper lobe in both lower lobes suspicious for Covid19 pneumonia. No acute bony abnormalities. IMPRESSION: Bilateral ground-glass infiltrates suspicious for Covid19 pneumonia Dictated by: Dutch Nair MD 03/16/2020 08:37 Dutch Nair MD in [place] 03/16/2020 08:37
--- NOTE | 2020-03-16 06:44 | CT_ITS ---
PROCEDURE: CT HEAD/BRAIN WO CON CLINICAL INDICATION: lower extremity numbness Lower extremity numbness COMPARISON: No exams were available for comparison TECHNIQUE: Axial images obtained. All CT scans at the facility use one or more dose reduction, viz: automated exposure control, ma/kV adjustment per patient size (including targeted exams where dose is matched to indication, i.e. head), or iterative reconstruction technique. FINDINGS: No midline shift, mass effect, intracranial hemorrhage, hydrocephalus, or extra-axial fluid collection is evident. The calvarium has an unremarkable appearance. 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 No sinus air-fluid level. IMPRESSION: No acute intracranial finding Dictated by: Dutch Nair MD 03/16/2020 08:20 Dutch Nair MD in [place] 03/16/2020 08:20
--- NOTE | 2020-03-16 06:53 | CT_ITS ---
PROCEDURE: CT LUMBAR SPINE W CON CLINICAL HISTORY: numbness to lower extremity COMPARISON: No exams were available for comparison TECHNIQUE: Axial images obtained with sagittal and coronal reformats. All CT scans at the facility use one or more dose reduction, viz: automated exposure control, ma/kV adjustment per patient size (including targeted exams where dose is matched to indication, i.e. head), or iterative reconstruction technique. FINDINGS: Normal alignment. No fracture or dislocation. No lytic or blastic change. There is bulging disc at L4-5 with right paracentral and foraminal disc protrusion causing right lateral recess and foraminal narrowing. MRI may better evaluate or possible neural impingement Transitional segment is present at L5. No enhancing lesions are evident. No lytic or blastic change. IMPRESSION: There is bulging disc at L4-5 with right paracentral and foraminal disc protrusion causing right lateral recess and foraminal narrowing. Nonemergent MRI may better evaluate for possible neural impingement Dictated by: Dutch Nair MD 03/16/2020 08:44 Dutch Nair MD in [place] 03/16/2020 08:44
--- NOTE | 2020-03-16 06:53 | CT_ITS ---
PROCEDURE: CT THORACIC SPINE W CON CLINICAL HISTORY: numbness to lower extremity Left leg numbness COMPARISON: No exams were available for comparison TECHNIQUE: Axial images obtained with sagittal and coronal reformats. All CT scans at the facility use one or more dose reduction, viz: automated exposure control, ma/kV adjustment per patient size (including targeted exams where dose is matched to indication, i.e. head), or iterative reconstruction technique. FINDINGS: Normal alignment. No acute fracture. There is mild multilevel degenerative disc disease there is a small spur along the right C7-T1 junction posteriorly at the lamina causing lateral recess narrowing on the right. This could be causing some impingement upon the cord and may be better evaluated with MRI. Lamina hypertrophy/posterior longitudinal ligament ossification also noted at T2-T3 resulting in severe canal stenosis of 7 mm and may very well be causing cord compression. MRI may further evaluate. Lamina hypertrophy also noted at T3-T4 with narrowing of the canal at 9 mm. Posterior lamina hypertrophy present at T4-T5 centrally with narrowing of the canal at 9 mm. T5-T6: Lamina hypertrophy posteriorly with narrowing of the canal at 10 mm. T6-T7: Posterior lamina hypertrophy slightly eccentric to the right with narrowing of the canal T7-T8: Lamina hypertrophy/posterior longitudinal ligament ossification noted with canal stenosis at 9 mm T8-T9: Anterior osteophytes. T9-T10: Anterior osteophytes with mild degenerative disc disease T10-T11 and T11-T12 are unremarkable other than mild degenerative disc disease. No enhancing lesions are evident. Fluid is present in the distal esophagus and may be due to reflux. There is multifocal ground-glass infiltrates in the right upper lobe, right lower lobe, and left lower lobe. The lungs are incompletely imaged. These findings are suspicious for Covid19 pneumonia. There is a 8 mm nodule in the right lung base posteriorly versus confluent area of consolidation/atelectasis IMPRESSION: 1. There is multilevel lamina hypertrophy versus posterior longitudinal ligament ossification causing canal stenosis CT multiple levels. Please see above for detailed description at each level. MRI may better evaluate for degree of cord impingement/compression. The most severe level is at T2-T3 with the canal measuring 7 mm with suspected cord impingement. 2. Mild multilevel degenerative disc disease 3. Multifocal ground-glass infiltrates suspicious for Covid19 pneumonia Dictated by: Dutch Nair MD 03/16/2020 08:36 Dutch Nair MD in [place] 03/16/2020 08:36
--- NOTE | 2020-03-16 06:53 | CT_ITS ---
PROCEDURE: CT CERVICAL SPINE W CON CLINICAL INDICATION: numbness to lower extremity Lower extremity numbness COMPARISON: No exams were available for comparison TECHNIQUE: Axial images obtained with sagittal and coronal reformats. All CT scans at the facility use one or more dose reduction, viz: automated exposure control, ma/kV adjustment per patient size (including targeted exams where dose is matched to indication, i.e. head), or iterative reconstruction technique. Axial spiral CT scanning performed of the cervical spine beginning at the base of the skull and continuing to the upper T-spine. 3-D multiplanar reconstruction with 3-D manipulation of volumetric data set in image rendering was completed by the radiologist and/or technologist with the supervision of the radiologist on independent workstation. FINDINGS: Normal alignment. No fracture or dislocation. No lytic or blastic change. There is mild multilevel cervical spondylosis. Anterior osteophytes are present from C2-C6. C2-C3: Unremarkable. C3-C4: Mild degenerative disc disease with right-sided foraminal narrowing from uncovertebral hypertrophy. C4-C5: Mild degenerative disc disease. C5-C6: Degenerative disc disease with endplate osteophytes with right and left lateral recess narrowing and foraminal narrowing from uncovertebral hypertrophy/small uncovertebral disc osteophyte complexes. There is canal stenosis at this level. C6-C7: Degenerative disc disease with uncovertebral hypertrophy with bilateral foraminal narrowing and mild left lateral recess narrowing. There may be a small central disc protrusion at this rib level. The lung apices are clear. Air is present within the esophagus which could be due to reflux. No enhancing lesions are evident. No evidence of osteomyelitis or paraspinal mass. IMPRESSION: Multilevel cervical spondylosis with lateral recess and foraminal narrowing and canal stenosis. Please see above for detailed description at each level. No acute fracture. Air is present in the esophagus possibly due to reflux. Dictated by: Dutch Nair MD 03/16/2020 08:26 Dutch Nair MD in [place] 03/16/2020 08:26
[2020-03-16 07:21] LABS: Basophils % 0.2 % (0.1-2.0); Eosinophils # 0.2 K/mm3 (0.0-0.4); Eosinophils % 1.1 % (0.1-12.0); Hematocrit 45.6 % (42.0-52.0); Hemoglobin 15.7 g/dL (14.1-18.0); Lymphocytes # 0.5 K/mm3 (0.7-4.5); Lymphocytes % 2.5 % (10-50); Mean Corpuscular HGB Conc 34.3 g/dL (31.8-35.4); Mean Corpuscular Hemoglobin 31.4 pg (27.0-31.2); Mean Corpuscular Volume 91.6 fl (80-94); Mean Platelet Volume 8.7 fl (7.4-10.4); Monocytes # 0.9 K/mm3 (0.1-1.0); Monocytes % 4.5 % (1.7-9.3); Neutrophils # 18.1 K/mm3 (1.8-7.8); Neutrophils % 91.8 % (37.0-80.0); Platelet Count 276 K/mm3 (142-424); Red Blood Count 4.98 M/mm3 (4.60-6.20); Red Cell Distribution Width 13.4 % (11.5-17.5); White Blood Count 19.7 K/mm3 (4.8-10.8)
--- NOTE | 2020-03-16 07:24 | ECG_ITS ---
APPROVED REPORT Exam: Resting ECG HR:113 bpm ECG Measurements Heart Rate 113 AXES PA 130 P 60 QRSd 86 QRS 11 QT 338 T 27 QTc 463 Conclusion Sinus tachycardia with fusion complexes Possible Left atrial enlargement Borderline ECG Electronically signed by : Vasquez Mckeon, 03/17/2020 18:09:14
[2020-03-16 07:25] LABS: MANUAL DIFFERENTIAL MANUAL DIFFERENTIAL (MANUAL DIFF)
--- NOTE | 2020-03-16 07:26 | PC.NURSE ---
Rad aware of orders. waiting on lab work.
[2020-03-16 07:27] LABS: Alanine Aminotransferase 20 U/L (12-78); Albumin Level 5.3 g/dl (3.5-5.0); Alkaline Phosphatase 113 U/L (38-126); Anion Gap 18.4 mEq/L (5-15); Aspartate Amino Transferase 48 U/L (17-59); Bilirubin,Direct 0.4 mg/dl (0.0-0.4); Bilirubin,Total 0.4 mg/dl (0.2-1.3); Blood Urea Nitrogen 15 mg/dl (9-20); Calcium 9.7 mg/dl (8.4-10.2); Carbon Dioxide 29 mmol/L (22.0-30.0); Chloride 99 mmol/L (98-107); Creatinine Clearance Estimated 74 mL/min (50-200); Estimated Glomerular Filt Rate 54 ml/min (>60); GFR (African American) 65 ML/MIN (>60); Glucose 212 mg/dl (74-100); Potassium 4.4 mmoL/L (3.5-5.1); Sodium 142 mmol/L (136-145); Total Protein,Serum 9.3 g/dl (6.3-8.2)
[2020-03-16 07:33] LABS: C-Reactive Protein 8.2 mg/L (0-4)
[2020-03-16 07:37] LABS: Lactic Acid 2.9 mmol/L (0.7-2.1)
--- NOTE | 2020-03-16 07:44 | PC.NURSE ---
to ct per wheelchair
[2020-03-16 07:49] LABS: Lymphocytes % 4 % (10-50); Monocytes % 5 % (2-9); Neutrophils % 91 % (42-76); Total Cells Counted 100
[2020-03-16 07:50] LABS: Platelet Estimate Normal; RBC Morphology Normal
[2020-03-16 07:52] LABS: Coronavirus 19 IgG Antibody Negative (Negative); Coronavirus 19 IgM Antibody Negative (Negative)
--- NOTE | 2020-03-16 07:53 | HMH.EDWEAK ---
ED Disposition Condition on Discharge: Good - Critical Care Critical Care Time: No <LucasMaverick - Last Filed: 03/16/20 08:11> Condition on Discharge: Fair Time of Disposition: 11:49 - Critical Care Critical Care Time: No <Nathan Draek - Last Filed: 03/16/20 11:49> Clinical Impression: Numbness and tingling of left lower extremity, SIRS (systemic inflammatory response syndrome) Disposition: Admitted As Inpatient Referrals: PCP,No [Primary Care Provider] - Attestation: On 03/16/20, the high probability of a clinically significant, sudden or life threatening deterioration of the following system(s) required my full and direct attention, intervention and personal management. The time I documented below is in addition to time spent performing reported procedures but includes the following listed in this critical care notation. Medical Decision Making - Medical Records Medical records reviewed: Yes: I reviewed the patient's medical records. - Joaquín Inquiry Pt receiving controlled substance: No - Lab Data Lab results reviewed: Yes: I reviewed the patient's lab results. Result diagrams: 03/16/20 07:00 03/16/20 07:00 - ECG Data Tracing #1 Normal Sinus Rhythm: Yes Ischemic changes: non-specific ST-T wave changes <LucasMaverick nguyen - Last Filed: 03/16/20 08:11> - Medical Records MR Comment: I took patient over from Dr. Zavala; initial complaint was left-sided numbness in his left lower extremity; CTs of T-spine and L-spine and C-spine were done for details please see the CT reports; he does have degenerative disc disease at multiple levels and stenosis; CT of the head showed no acute findings, his CBC showed an elevation of WBC at 19 point 7; CRP is elevated at 8.2, pro calcitonin is elevated at 3.13, COVID-19 test was negative; lactate was increased at 2.9, vital signs are stable with a blood pressure 141/91 pulse is 108 oxygen saturation 94% on room air Urinalysis is negative; CXR showed bilateral groundglass infiltrates suspicious for COVID-19 pneumonia; Diagnosis is Community acquired pneumonia, 2. elevated troponin, 3. left extremity numbness; Spoke to Dr. Harkins and he has advised admission to start him on an antibiotic will consult cardiology have already spoken to Nikita and he has requested for an echocardiogram and this is being done; Due to elevated troponin will also keep him on heparin drip - Joaquín Inquiry Pt receiving controlled substance: No - Lab Data Lab results reviewed: Yes: I reviewed the patient's lab results. Result diagrams: 03/16/20 07:00 03/16/20 07:00 - ECG Data Tracing #1 Normal Sinus Rhythm: Yes Arrhythmias present: sinus tach Ischemic changes: acute NSTEMI, non-specific ST-T wave changes <Nathan Drake - Last Filed: 03/16/20 11:49> Vital Signs: 03/16/20 06:42 03/16/20 07:23 03/16/20 07:32 Temperature 97.7 F Temperature Source Oral Pulse Rate [Right Brachial] 117 H 113 H 117 H Respiratory Rate 17 20 Blood Pressure [Right Arm] 149/85 H 143/89 H 142/92 H Blood Pressure Mean [Right Arm] 106 107 108 Blood Pressure Source [Right Arm] Automatic Cuff Automatic Cuff Blood Pressure Position [Right Arm] Sitting Sitting Sitting 02 Sat by Pulse Oximetry 96 96 94 L Oxygen Delivery Method Room Air Room Air Room Air 03/16/20 09:00 03/16/20 09:30 03/16/20 10:02 Temperature Temperature Source Pulse Rate [Right Brachial] 108 H 100 H 89 Respiratory Rate Blood Pressure [Right Arm] 141/91 H 139/89 137/99 H Blood Pressure Mean [Right Arm] 107 105 111 Blood Pressure Source [Right Arm] Automatic Cuff Automatic Cuff Automatic Cuff Blood Pressure Position [Right Arm] Sitting Sitting Sitting 02 Sat by Pulse Oximetry 96 95 96 Oxygen Delivery Method Room Air Room Air Room Air 03/16/20 10:42 03/16/20 11:02 Temperature Temperature Source Pulse Rate [Right Brachial] 100 H 108 H Respiratory Rate Blood Pressure [Right Arm] 124/85 128/78 Blood Pressu
[2020-03-16 07:56] LABS: Erythrocyte Sedimentation Rate 11 mm/hr (0-15)
[2020-03-16 08:35] LABS: Troponin I 0.08 ng/ml (0.00-0.034)
[2020-03-16 08:40] LABS: Procalcitonin 3.13 ng/mL (0.0-2.0)
--- NOTE | 2020-03-16 08:56 | PC.NURSE ---
Pt's mother calls out saying he's sick and pt had projectile vomited all over himself, bed and floor. Pt stated it hit him all at once . Pt is cleaned up and linens changed.
[2020-03-16 09:20] LABS: Adenovirus,PCR Not Detected (NotDetected); Bordetella Pertussis Not Detected (NotDetected); Chlamydophila Pneumoniae, PCR Not Detected (NotDetected); Coronavirus 19, PCR Not Detected (NotDetected); Coronavirus 229E Not Detected (NotDetected); Coronavirus NL63 Not Detected (NotDetected); Coronavirus OC43 Not Detected (NotDetected); Coronovirus HKU1,PCR Not Detected (NotDetected); Human Metapneumovirus Not Detected (NotDetected); Influenza A, PCR Not Detected (NotDetected); Influenza AH1, 2009 Not Detected (NotDetected); Influenza AH1, PCR Not Detected (NotDetected); Influenza AH3,PCR Not Detected (NotDetected); Influenza B, PCR Not Detected (NotDetected); Mycoplasma Pneumoniae, PCR Not Detected (NotDetected); Parainfluenza 1, PCR Not Detected (NotDetected); Parainfluenza 2, PCR Not Detected (NotDetected); Parainfluenza 3, PCR Not Detected (NotDetected); Parainfluenza 4, PCR Not Detected (NotDetected); Respiratory Syncytial Virus Not Detected (NotDetected); Rhinovirus/Enterovirus Not Detected (NotDetected)
--- NOTE | 2020-03-16 09:22 | PC.NURSE ---
PT STILL STATES HE IS UNABLE TO GIVE URINE SPECIMEN. PT REFUSES CATH.
--- NOTE | 2020-03-16 10:00 | PC.NURSE ---
PT AND FAMILY UPDATED ON PLAN OF CARE
--- NOTE | 2020-03-16 10:17 | PC.NURSE ---
Per Sapna in lab there are approx 48 mins left on covid swab.
[2020-03-16 10:43] LABS: Troponin I 0.13 ng/ml (0.00-0.034)
--- NOTE | 2020-03-16 11:00 | PC.NURSE ---
PT AND FAMILY UPDATED ON PLAN OF CARE
[2020-03-16 11:08] LABS: Microscopic, Urine URINE MICROSCOPIC (MICROSCOPIC)
[2020-03-16 11:10] LABS: Appearance,Urine CLEAR (Clear); Bilirubin,Urine Negative (Negative); Blood, Urine TRACE-L (Negative); Color,Urine YELLOW (Yellow); Glucose,Urine (UA) TRACE (Negative); Ketones,Urine Negative (Negative); Leukocyte Esterase,Urine Negative (Negative); Nitrate,Urine Negative (Negative); Protein,Urine Negative (Negative); Urobilinogen,Urine 0.2 EU/dl (0.2)
[2020-03-16 11:19] LABS: WBC,Urine Occasional #/hpf (0-3)
--- NOTE | 2020-03-16 11:19 | PC.NURSE ---
THIAGO LENNON speaking with Dr Hawkins
[2020-03-16 11:20] LABS: Reflex Lactic Add Lactic Reflex
[2020-03-16 11:21] LABS: Amphetamine/Metha Screen,Urine Negative ng/ml (<1000); Barbiturates Screen,Urine Negative ng/ml (<200)
[2020-03-16 11:22] LABS: Benzodiazepines Screen,Urine Negative ng/ml (<200)
[2020-03-16 11:23] LABS: Opiate Screen,Urine Negative ng/ml (<300); Phencyclidine Screen,Urine Negative ng/ml (<25)
[2020-03-16 11:25] LABS: Cannabinoid Screen,Urine Negative ng/ml (<50); Cocaine Screen,Urine Negative ng/ml (<300)
[2020-03-16 11:26] LABS: Methadone Screen,Urine Negative ng/ml (<300)
--- NOTE | 2020-03-16 11:29 | PC.NURSE ---
Dr Gonzalez speaking with Marialuisa in regards to elevated trop , he wants echo ordered
--- NOTE | 2020-03-16 11:30 | CA_ITS ---
APPROVED REPORT EXAM: Comprehensive 2D, Doppler, and color-flow Echocardiogram Diesel Electrician: Yolanda Kebede [facility], RVS Ht: 5 ft 9 in Wt: 180lbs BSA: 1.98 BP: 110/70 mmHg Indications: elevated Troponin, leg numbness 2D Dimensions Aortic Root 3.15 cm Left Atrium 3.10 cm LVOT 1.85 cm (M/F) 1.5-2.5 M-Mode Dimensions RVDd 2.55 cm (0.9-2.6) LA Diam 3.61 cm (1.9-4.0) LVDd 4.55 cm (3.5-5.7) Ao Diam 3.35 cm (2.0-3.7) IVSd 0.96 cm (0.6-1.1) PWd 0.96 cm (0.6-1.1) EPSs 0.55 cm EDV (Teich) 94.90 mL LV Diastology E Decel Time 198.00 (160-240 msec) E/A Ratio 1.22 MED E' 9.50 (< 7 cm/sec) MED A' 17.70 cm/s E'/MED E' Ratio 8.59 (>14) LAT E' 11.80 (<10 cm/sec) LAT A' 12.90 cm/s E/LAT E' Ratio 6.92 (>14) Aortic Valve AO Peak GR. 7.70 mmHg Mitral Valve MV A Velocity 67.00 (40-130 cm/s) E/A Ratio 1.22 MV Decel. Time 198.00 (160-240 ms) Pulmonary Valve PV Peak Velocity 78.00 (50-150 cm/s) AZ End VMAX 179.00 cm/s Tricuspid Valve TR P. Velocity 275.00 cm/s RAP Estimate 10.00 mmHg RVSP 40.30 mmHg Left Ventricle Left atrium is normal size, left ventricle is normal size, mild concentric left ventricular hypertrophy, visually estimated ejection fraction 55% with no regional wall motion abnormality. Diastolic parameters are inconclusive. Right Ventricle Right atrium and right ventricle mildly enlarged with normal contractility. Aortic Valve Aortic valve is grossly normal, there is no aortic stenosis or aortic insufficiency. Mitral Valve Mitral valve is grossly normal, there is trace mitral regurgitation. Tricuspid Valve Tricuspid valve grossly normal, there is mild tricuspid regurgitation, calculated right ventricular systolic pressure is 40 mmHg. Pulmonic Valve Pulmonic valve is poorly visualized. Great Vessels Aortic root is normal size. Pericardium No significant pericardial effusion noted. Conclusion 1. Normal left ventricular size, preserved left ventricular systolic function, visually estimated ejection fraction 55% with no regional wall motion abnormality. Diastolic parameters are inconclusive 2. Mildly enlarged right atrium and left ventricle, contractility of the right ventricle is normal. 3. Trace mitral and mild tricuspid regurgitation, calculated right ventricular systolic pressure is 40 mmHg. 4. No significant pericardial effusion noted. Electronically signed by : Farnsisco Terrazas, 03/16/2020 15:07:45
--- NOTE | 2020-03-16 11:40 | PC.NURSE ---
SPOKE WITH ALDO IN PHARMACY REGARDING HEPARIN. BOLUS OF 4000UNITS AND DRIP AT 1000U/HR
--- NOTE | 2020-03-16 11:42 | PC.NURSE ---
CHASE NORMAN AT PT'S BEDSIDE
--- NOTE | 2020-03-16 11:54 | HMH.CNCARD ---
History of Present Illness Consult date: 03/16/20 Requesting physician: Raz Jacinto Consult reason: chest pain Chief complaint: Left leg numbness, elevated troponins Additional Medical History:: 1. History of IV drug use 2. Elevated troponins, 03/16/2020, associated with SIRS pneumonia A. Covid PCR and antibody negative History of present illness: woke up this morning and had left leg numbness; right ear is hard of hearing but he reports it is worse today than normal. he further states he thought his leg was asleep but he can't get it to do anything . went on to say it was tingling. denied any alteration in sensation to other three extremities. denies back pain or injury. denies recent trauma. pt denies recent illness or exposure to covid. afebrile. The above per Dr. Zavala I took patient over from Dr. Zavala; initial complaint was left-sided numbness in his left lower extremity; CTs of T-spine and L-spine and C-spine were done for details please see the CT reports; he does have degenerative disc disease at multiple levels and stenosis; CT of the head showed no acute findings, his CBC showed an elevation of WBC at 19 point 7; CRP is elevated at 8.2, pro calcitonin is elevated at 3.13, COVID-19 test was negative; lactate was increased at 2.9, vital signs are stable with a blood pressure 141/91 pulse is 108 oxygen saturation 94% on room air Urinalysis is negative; CXR showed bilateral groundglass infiltrates suspicious for COVID-19 pneumonia; Diagnosis is Community acquired pneumonia, 2. elevated troponin, 3. left extremity numbness; Spoke to Dr. Harkins and he has advised admission to start him on an antibiotic will consult cardiology have already spoken to Nikita and he has requested for an echocardiogram and this is being done; Due to elevated troponin will also keep him on heparin drip. The above per Dr. Drake Above complaints confirmed. Now relates some mild transient chest discomfort 2 wks ago that resolved spontaneously without associated symptoms. Denies any medications for HTN, HLD or diabetes. No early family history of coronary disease in his mother or father. Patient denies tobacco or alcohol use. He does admit to heavy drug use in the past but none in the last 3 to 4 years. He does admit to using IV drugs but again none in the last 3 to 4 years. EKG today shows sinus tachycardia with no acute ST segment changes. Initial troponin 0 0.08 with follow-up troponin 0.13. White count is 19,700 with an elevated procalcitonin of 3.13, elevated lactate of 2.9 and CRP of 8.2 [facility] History Medical History: Denies:: Asthma, Atherosclerotic Heart Disease, Atrial Fibrillation, Cancer, Congestive Heart Failure, Chronic Obstructive Pulmonary Disease (COPD), Congenital Heart Disease, Cerebrovascular Accident, Diabetes Mellitus Type 1, Diabetes Mellitus Type 2, Gastroesophageal Reflux Disease(GERD), Gastrointestinal Bleed, Hepatitis, Hyperlipidemia, Hypertension, Internal Pacemaker, Lung Disease, MRSA, Myocardial Infarction, Renal Disease, Seizures, Transient Ischemic Attacks (TIA) *Have you ever received a pneumonia vaccine?: No *Have you received a flu vaccine this season?: No Other Medical History: Denies: Anemia, Hypothyroidism, Liver Disease, Thyroid Disease, Unexplained Bleeding Other Surgeries: Yes: No Previous Surgery. No: Pacemaker - *Social History Alcohol Intake: never Substance Use Type: IV drugs *Occupational Status:: employed *Travel in the last 8 weeks: Inside the [place] Family Hx:: Diabetes, Hypertension, no Cancer Meds Home Medications Medication Instructions Recorded Confirmed Type No Known Home Medications 03/16/20 03/16/20 History Allergies Allergy/AdvReac Type Severity Reaction Status Date / Time No Known Allergies Allergy Unverified 02/11/17 14:21 Exam Vital signs and Labs for Last 24 Hours: Temp Pulse Resp BP Pulse Ox 97.7 F 108 H 20 128/78 96 03/16/20 06:42 03/16/20 11:02
--- NOTE | 2020-03-16 11:58 | PC.NURSE ---
CALLED FLOOR PT IS READY FOR ADMISSION
[2020-03-16 12:03] LABS: Activated Partial Thrombo Time 24.4 seconds (23.6-34.0); INR 0.98 (0.9-1.1); Prothrombin Time 10.9 seconds (9.4-11.8)
[2020-03-16 12:17] LABS: Lactic Acid Follow Up (RFLX 1) 2.5 mmol/L (0.7-2.1)
--- NOTE | 2020-03-16 12:21 | PC.NURSE ---
REPORT TO JUN HOLLINS RN
--- NOTE | 2020-03-16 12:25 | PC.NURSE ---
PT arrived to the floor at this time.
--- NOTE | 2020-03-16 13:00 | PC.NURSE ---
PT ASSESSED AT THIS TIME. PT SKIN IS PALLOR IN COLOR AND HANDS ARE COLD. ORAL TEMP OF 97.7. PT DENIES CHEST PAIN. STATES L LEG PAIN AND STATES THAT HE FEELS IF IT IS ASLEEP TINGLING FEELING. ALSO STATES BACK PAIN AND RATES THIS A 7/10 ON VERBAL SCALE. BILATERAL LUNG SOUNDS DIMINISHED. EDEMA NOTED TO BILATERAL ANKLE AND PEDAL AREAS. NO OPEN WOUNDS NOTED. PT REQUESTING SOMETHING TO EAT AT THIS TIME. WILL CONTINUE TO OBSERVE.
--- NOTE | 2020-03-16 13:48 | HMH.PHAHEP ---
[facility] Pharmacy Heparin Dosing - Demographic Data Admission date:: 03/16/20 Date: 03/16/20 Time: 13:48 Allergies/Adverse Reactions: Allergies Allergy/AdvReac Type Severity Reaction Status Date / Time No Known Allergies Allergy Unverified 02/11/17 14:21 Height: 1.75 m Weight: 81.6 kg - Indication Medication therapy:: Heparin Patient Problems: Current Active Problems RLL pneumonia (Acute) Anemia (Acute) Numbness and tingling of left lower extremity (Acute) SIRS (systemic inflammatory response syndrome) (Acute) Elevated troponin (Acute) CVA?: No Bleeding problem?: No Kidney disease?: No WV?: No Desired PTT range:: 60-80 seconds - Labs Anticoagulation Lab Results:: 03/16/20 07:00 Hgb 15.7 Hct 45.6 Plt Count 276 - Monitoring Dose Monitor 1 Date: 03/16/20 Time: 07:00 PTT Result:: 24.4 Infusion Rate:: INFUSION STARTED AT 1,000 UNITS/HR @ 1200 Comment:: 4,000 UNIT HEPARIN BOLUS JLS=[id number] Dose Monitor 2 Date: 03/16/20 Time: 18:00 PTT Result:: 44.2 Infusion Rate:: INCREASE TO 1,250 UNITS/HR Comment:: 4,000 UNIT BOLUS Dose Monitor 3 Date: 03/17/20 Time: 01:00 PTT Result:: 92.3 Infusion Rate:: DECREASE RATE TO 1,075 UNITS/HR Comment:: PLT= 210K Dose Monitor 4 Date: 03/17/20 Time: 08:00 PTT Result:: 61.5 Infusion Rate:: CONTINUE 1,075 UNITS/HR Dose Monitor 5 Date: 03/17/20 Time: 14:00 PTT Result:: 59.9 Infusion Rate:: CONTINUE RATE AT 1,075 UNITS/HR - Core Measures Is INR > or = 2 at discharge?: No Most Recent Labs:: Laboratory Results - last 24 hr 03/16/20 07:00: WBC 19.7 H, RBC 4.98, Hgb 15.7, Hct 45.6, MCV 91.6, MCH 31.4 H, MCHC 34.3, RDW 13.4, Plt Count 276, MPV 8.7, Neut % (Auto) 91.8 H, Lymph % (Auto) 2.5 L, Valley % (Auto) 4.5, Eos % (Auto) 1.1, Baso % (Auto) 0.2, Neut # (Auto) 18.1 H, Lymph # (Auto) 0.5 L, Valley # (Auto) 0.9, Eos # (Auto) 0.2, Baso # (Auto) 0.0, Total Counted 100, Neutrophils % (Manual) 91 H, Lymphocytes % (Manual) 4 L, Monocytes % (Manual) 5, Platelet Estimate Normal, RBC Morphology Normal, ESR 11 03/16/20 07:00: Sodium 142, Potassium 4.4, Chloride 99, Carbon Dioxide 29, Anion Gap 18.4 H, BUN 15, Creatinine 1.40 H, Estimated Creat Clear 74, Estimated GFR 54 L, Est GFR ( Amer) 65, Glucose 212 H, Calcium 9.7, Total Bilirubin 0.4, Direct Bilirubin 0.4, Conjugated Bilirubin 0.0, Indirect Bilirubin 0.0, Unconjugated Bilirubin 0.0, AST 48, ALT 20, Alkaline Phosphatase 113, C-Reactive Protein 8.2 H, Total Protein 9.3 H, Albumin 5.3 H 03/16/20 07:00: SARS-CoV-2 IgG Ab (Rapid) Negative, SARS-CoV-2 IgM Ab (Rapid) Negative 03/16/20 07:00: Troponin I 0.08 H, Procalcitonin 3.13 H 03/16/20 07:00: PT 10.9, INR 0.98, APTT 24.4 03/16/20 07:10: Lactate 2.9 H 03/16/20 09:15: Chlamy pneumoniae PCR Not detected, Adenovirus (PCR) Not detected, B. pertussis DNA (PCR) Not detected, Coronavirus OC43 (PCR) Not detected, Coronavirus HKU1 (PCR) Not detected, Coronavirus 229E (PCR) Not detected, SARS-CoV-2 (PCR) Not detected, Coronavirus NL63 (PCR) Not detected, Human Metapneumovir PCR Not detected, Influenza A (H1) PCR Not detected, Influ A (H1N1/09) PCR Not detected, Influenza A (H3) PCR Not detected, Influenza Type A (PCR) Not detected, Influenza Type B (PCR) Not detected, M. pneumoniae (PCR) Not detected, Parainfluenza 1 (PCR) Not detected, Parainfluenza 2 (PCR) Not detected, Parainfluenza 3 (PCR) Not detected, Parainfluenza 4 (PCR) Not detected, RSV (PCR) Not detected, Entero/Rhino (PCR) Not detected 03/16/20 10:00: Troponin I 0.13 H 03/16/20 10:48: Urine Color Yellow, Urine Appearance Clear, Urine pH 5.0, Ur Specific Ozone 1.010, Urine Protein Negative, Urine Glucose (UA) Trace, Urine Ketones Negative, Urine Blood Trace-l, Urine Nitrate Negative, Urine Bilirubin Negative, Urine Urobilinogen 0.2, Ur Leukocyte Esterase Negative, Urine RBC 3-5, Urine WBC Occasional, Ur Squamous Epith Cells 3-5 03/16/20 10:48: Urine Opiates Screen Negative, Uri
--- NOTE | 2020-03-16 13:50 | HMH.PHAVTE ---
[facility] Pharmacy VTE Monitoring - Patient Demographics Admission date: 03/16/20 Report Date: 03/16/20 Time: 13:50 Allergies/Adverse Reactions: Patient Allergies No Known Allergies Allergy (Unverified 02/11/17 14:21) Height: 1.75 m Weight: 81.6 kg Patient Problems: Current Active Problems RLL pneumonia (Acute) Anemia (Acute) Numbness and tingling of left lower extremity (Acute) SIRS (systemic inflammatory response syndrome) (Acute) Elevated troponin (Acute) - VTE Risk Labs: VTE Related Lab Results Hgb 15.7 g/dL (14.1-18.0) 03/16/20 07:00 Hct 45.6 % (42.0-52.0) 03/16/20 07:00 Plt Count 276 K/mm3 (142-424) 03/16/20 07:00 PT 10.9 seconds (9.4-11.8) 03/16/20 07:00 INR 0.98 (0.9-1.1) 03/16/20 07:00 APTT 24.4 seconds (23.6-34.0) 03/16/20 07:00 BUN 15 mg/dl (9-20) 03/16/20 07:00 Creatinine 1.40 mg/dl (0.66-1.25) H 03/16/20 07:00 Estimated Creat Clear 74 mL/min (50-200) 03/16/20 07:00 Was VTE Risk Assessment Performed: Yes VTE Score: 4 VTE Risk Level: Low Risk - Prophylaxis VTE Prophylaxis Ordered?: Yes Types of VTE Prophylaxis: TEDS Knee High, Pharmacological Location of Applied Device: Bilateral Lower Extremeties Pharmacologic Type: Heparin
[2020-03-16 14:03] LABS: Reflex Lactic (2 hrs) Add Lactic Reflex
[2020-03-16 14:33] LABS: Prothrombin Time 12.1 seconds (9.4-11.8)
[2020-03-16 14:58] LABS: Troponin I 0.19 ng/ml (0.00-0.034)
[2020-03-16 18:49] LABS: Activated Partial Thrombo Time 44.2 seconds (23.6-34.0); Troponin I 0.14 ng/ml (0.00-0.034)
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
--- NOTE | 2020-03-16 19:51 | PC.NURSE ---
REPORT GIVEN TO Maria Dolores GUADARRAMA RN
[2020-03-17] VITALS (18 sets, daily range): BP systolic 85–134; BP diastolic 45–72; PULSE 60–119; RESP 16–20; TEMP 36.6–37.1; O2SAT 94–98; BMI 23.8
--- NOTE | 2020-03-17 | IR_ITS ---
APPROVED REPORT Patient Location: Inpatient Teacher Asst: DES [place] RT (R) PROCEDURES Left heart catheterization Left ventriculogram Selective coronary angiogram INDICATION Elevated troponin Informed consent was obtained prior to the procedure. COMPLICATIONS None Estimated Blood Loss: Less than 10 mls TECHNIQUE One percent lidocaine used to anesthetize the right anterior aspect of the wrist. The right radial artery was accessed via the Seldinger technique. A 6 Malian sheath was placed in the right radial artery. 2.5 mg of verapamil, 800 mcg of nitroglycerin, 1mg Lidocaine and 5000 U Heparin were given through the arterial sheath. The trap catheter was also used to perform left heart catheterization, left ventriculogram and selective coronary angiogram. At the end of the procedure the sheath was removed good hemostasis was achieved using Traclet band, patient was transferred to the postop holding area in stable condition. ANGIOGRAPHIC RESULTS The left main artery Normal The left anterior descending artery Normal The circumflex artery Normal The right coronary artery Massively large dominant normal The BERNAL ventriculogram reveals Normal 60% The left ventricular end-diastolic pressure 15 mmHg IMPRESSION Normal coronary arteries Normal ejection fraction Mildly elevated LVEDP PLAN 1. Medical management Electronically signed by : Galdino Brandon, 03/17/2020 10:44:49
--- NOTE | 2020-03-17 00:01 | PC.NURSE ---
2100 COURTESY ROUND PT ASLEEP . TRASH EMPTIED
[2020-03-17 01:49] LABS: Activated Partial Thrombo Time 92.3 seconds (23.6-34.0)
--- NOTE | 2020-03-17 01:55 | PC.NURSE ---
BECCA FROM PHARMACY CALLED ABOUT PT HEPRIN DRIP HE RECIEVED RESULTS FROM PTT OF 92.3.ORDERS TO DECREASE DRIP TO 1075 UNITS.
--- NOTE | 2020-03-17 02:10 | PC.NURSE ---
DECREASED HEPRIN DRIP TO 1075 UNITS PER BECCA FROM PHARMACY ORDERS PER PROTOCAL
--- NOTE | 2020-03-17 05:20 | PC.NURSE ---
PT HAS RESTED SOME TONIGHT.LUNGS CLEAR TO ASCULTATE THROUGHTOUT,RESP.EVEN AND UNLABORED.PT REPORTS HIS LEFT LEG FEELS BETTER TODAY,PT HAS HAD GOOD OUTPUT PER URINAL AT ONE POINT 1000ML OF CLEAR YELLOW URINE EMPTIED.HEPRIN WAS DECREASED TO 1075 FOR PTT OF 92.3.PT MEDICATED X1 WITH TYLENOL FOR BACK PAIN.NSR.
[2020-03-17 07:11] LABS: Anion Gap 7.4 mEq/L (5-15); Blood Urea Nitrogen 7 mg/dl (9-20); Carbon Dioxide 33 mmol/L (22.0-30.0); Chloride 101 mmol/L (98-107); Cholesterol 128 mg/dl (140-200); Creatinine Clearance Estimated 103 mL/min (50-200); Estimated Glomerular Filt Rate 90 ml/min (>60); GFR (African American) 109 ML/MIN (>60); Glucose 131 mg/dl (74-100); HDL Cholesterol 42 mg/dl (40-60); Potassium 4.4 mmoL/L (3.5-5.1); Sodium 137 mmol/L (136-145); Triglycerides 146 mg/dl (30-150); VLDL Cholesterol 29 mg/dL (0-40)
[2020-03-17 07:21] LABS: Direct LDL Cholesterol 61.91 mg/dL (100-129)
[2020-03-17 07:51] LABS: Calcium 8.5 mg/dl (8.4-10.2)
[2020-03-17 07:53] LABS: Basophils % 0.1 % (0.1-2.0); Eosinophils # 0.1 K/mm3 (0.0-0.4); Eosinophils % 0.6 % (0.1-12.0); Hematocrit 37.7 % (42.0-52.0); Lymphocytes # 1.8 K/mm3 (0.7-4.5); Lymphocytes % 17.6 % (10-50); Mean Corpuscular HGB Conc 33.8 g/dL (31.8-35.4); Mean Corpuscular Hemoglobin 30.4 pg (27.0-31.2); Mean Corpuscular Volume 90.1 fl (80-94); Monocytes # 0.5 K/mm3 (0.1-1.0); Monocytes % 4.8 % (1.7-9.3); Neutrophils # 7.7 K/mm3 (1.8-7.8); Platelet Count 210 K/mm3 (142-424); Red Blood Count 4.18 M/mm3 (4.60-6.20); Red Cell Distribution Width 13.7 % (11.5-17.5); White Blood Count 10.1 K/mm3 (4.8-10.8)
[2020-03-17 08:13] LABS: Hemoglobin 12.9 g/dL (14.1-18.0)
--- NOTE | 2020-03-17 08:15 | CA_ITS ---
APPROVED REPORT Left Lower Extremity Venous Study for DVT. Stone Cutter: Claudia Johnson RVT Indications Lower Extremity Pain: Left RULE OUT DVT,Numbness lle Medications Heparin Vein Imaging CFV (L): compressive, spontaneous, phasic, augmentation FEM (L): compressive, spontaneous, phasic, augmentation POP (L): compressive, spontaneous, phasic, augmentation PTV (L): Compressible GSV (L): Compressible Peroneals (L):Compressible GAS (L): Compressible Findings Study suggests no evidence of DVT of the left lower extremity. Study suggests no evidence of SVT of the left lower extremity. Conclusion Study suggests no evidence of DVT of the left lower extremity. Study suggests no evidence of SVT of the left lower extremity. Electronically signed by : Dutch Nari MD 03/17/2020 15:19:12
[2020-03-17 08:37] LABS: Activated Partial Thrombo Time 61.5 seconds (23.6-34.0)
--- NOTE | 2020-03-17 08:51 | PC.NURSE ---
PER BECCA IN PHARMACY, LEAVE HEPARIN DRIP THE SAME.
--- NOTE | 2020-03-17 09:25 | HMH.PNCARD ---
Subjective Date: 03/17/20 Time: 08:00 Principal diagnosis: NonStemi Interval history: 49 year old Caucasion male admitted to [facility] on 03/16/20 non-STEMI and pneumonia. Upon admission to [facility], patient noted to have elevated troponins. Patient stated that he had been having some mild chest discomfort for the past 2 weeks. Patient stated he noted he had been having some swelling in his lower extremities. Patient complained of leg numbness stating he felt that he could not walk. Due to patient's pulmonary issues, heart cath was postponed until today. Patient denies chest pain, tightness or pressure. Patient complains of shortness of breath especially with exertion. Patient denies being a smoker. Patient did receive a dose of Lasix IV yesterday due to the swelling. Decreased swelling noted of the lower extremities. Patient denies cough. Echo was performed yesterday. Echo revealed normal LVEF with no wall abnormality. Mild MR and TR noted. Creatinine 0.90 and BUN 7. Patient was started on metoprolol and aspirin yesterday. Patient noted to have sinus tachycardia on the monitor with a heart rate of 115 bpm. BP stable. Patient is noted to be on a heparin drip. Discussed with patient the risk and benefits of undergoing left heart catheterization due to his elevated troponins. Patient verbalized understanding and is agreeable to procedure. Matrix Bath Operator was notified. Pending on the results of the heart catheterization medication and treatment therapy changes may be recommended. Dr. Jacinto was notified of the decision of a left heart catheterization. Echo: Conclusion 1. Normal left ventricular size, preserved left ventricular systolic function, visually estimated ejection fraction 55% with no regional wall motion abnormality. Diastolic parameters are inconclusive 2. Mildly enlarged right atrium and left ventricle, contractility of the right ventricle is normal. 3. Trace mitral and mild tricuspid regurgitation, calculated right ventricular systolic pressure is 40 mmHg. 4. No significant pericardial effusion noted. Exam Vital signs and Labs for Last 24 Hours: Temp Pulse Resp BP Pulse Ox 98.7 F 117 H 20 130/55 L 98 03/17/20 08:00 03/17/20 08:00 03/17/20 08:00 03/17/20 08:00 03/17/20 08:00 Laboratory Results - last 24 hr 03/16/20 07:00: PT 10.9, INR 0.98, APTT 24.4 03/16/20 09:15: Chlamy pneumoniae PCR Not detected, Adenovirus (PCR) Not detected, B. pertussis DNA (PCR) Not detected, Coronavirus OC43 (PCR) Not detected, Coronavirus HKU1 (PCR) Not detected, Coronavirus 229E (PCR) Not detected, SARS-CoV-2 (PCR) Not detected, Coronavirus NL63 (PCR) Not detected, Human Metapneumovir PCR Not detected, Influenza A (H1) PCR Not detected, Influ A (H1N1/09) PCR Not detected, Influenza A (H3) PCR Not detected, Influenza Type A (PCR) Not detected, Influenza Type B (PCR) Not detected, M. pneumoniae (PCR) Not detected, Parainfluenza 1 (PCR) Not detected, Parainfluenza 2 (PCR) Not detected, Parainfluenza 3 (PCR) Not detected, Parainfluenza 4 (PCR) Not detected, RSV (PCR) Not detected, Entero/Rhino (PCR) Not detected 03/16/20 10:00: Troponin I 0.13 H 03/16/20 10:48: Urine Color Yellow, Urine Appearance Clear, Urine pH 5.0, Ur Specific [place] 1.010, Urine Protein Negative, Urine Glucose (UA) Trace, Urine Ketones Negative, Urine Blood Trace-l, Urine Nitrate Negative, Urine Bilirubin Negative, Urine Urobilinogen 0.2, Ur Leukocyte Esterase Negative, Urine RBC 3-5, Urine WBC Occasional, Ur Squamous Epith Cells 3-5 03/16/20 10:48: Urine Opiates Screen Negative, Urine Methadone Screen Negative, Ur Barbituates Screen Negative, Ur Phencyclidine Scrn Negative, Ur Amphetamines Screen Negative, U Benzodiazepines Scrn Negative, Urine Cocaine Screen Negative, U Marijuana (THC) Screen Negative 03/16/20 11:55: Lactate 2.5 H 03/16/20 13:43: PT 12.1 H, INR 1.10 03/16/20 14:28: Troponin I 0.19 H 03/16/20 14:28: Lactate 3.0 H 03/16/20 18:10: T
--- NOTE | 2020-03-17 09:52 | PC.NURSE ---
PT TRANSPORTED TO [facility] VIA WHEELCHAIR.
--- NOTE | 2020-03-17 11:19 | PC.NURSE ---
RECEIVED REPORT FROM MADHU IN [employer]. AWAITING PT TO FLOOR.
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
[2020-03-17 13:39] LABS: Basophils % 0.3 % (0.1-2.0); Eosinophils # 0.1 K/mm3 (0.0-0.4); Lymphocytes # 2.3 K/mm3 (0.7-4.5); Lymphocytes % 21.6 % (10-50); Mean Corpuscular HGB Conc 33.2 g/dL (31.8-35.4); Mean Corpuscular Hemoglobin 30.4 pg (27.0-31.2); Mean Corpuscular Volume 91.4 fl (80-94); Mean Platelet Volume 8.9 fl (7.4-10.4); Monocytes # 0.5 K/mm3 (0.1-1.0); Monocytes % 4.5 % (1.7-9.3); Neutrophils # 7.7 K/mm3 (1.8-7.8); Neutrophils % 72.6 % (37.0-80.0); Platelet Count 220 K/mm3 (142-424); Red Blood Count 3.94 M/mm3 (4.60-6.20); Red Cell Distribution Width 13.7 % (11.5-17.5); White Blood Count 10.7 K/mm3 (4.8-10.8)
[2020-03-17 14:26] LABS: Activated Partial Thrombo Time 59.9 seconds (23.6-34.0)
== END 2020-03-17 16:29 | disposition home or self-care (01) ==
LOC: ER 11:49 → 2ND 12:31
PROVIDERS: Emergency Medicine; Internal Medicine; Urology; Admitting Provider Family Medicine; Emergency Provider Emergency Medicine; Visit Provider Family Medicine
DX: I21.4 Non-ST elevation (NSTEMI) myocardial infarction (principal); J18.9 Pneumonia, unspecified organism; R65.10 Systemic inflammatory response syndrome (SIRS) of non-infectious origin without acute organ dysfunction; D64.9 Anemia, unspecified
CPT/HCPCS: 36415; 70450; 71046; 72126; 72129; 72132; 80048; 80061; 80076; 80305; 81001; 83605; 84145; 84484; 85007; 85025; 85610; 85651; 85730; 86140; 86328; 87040; 87581; 87633; 87798; 93005; 93306; 93458; 93971; 96365; 96367; 96375; 99152; 99285; C1725; C1769; G0378; J0456; J1644; J2405; Q9967; U0003